=== PATIENT | male | born 1955 | race Caucasian/White ===

== ENCOUNTER → 2017-02-07 | Outpatient (CLI) | payer BC ==
[~2017-02-07] MED LIST: LRT5 PO
[2017-02-07 13:16] LABS: BLOOD UREA NITROGEN 11 mg/dl (7-18); BUN/CREATININE RATIO 9.7 (10-20)
== END | disposition home or self-care (01) ==
LOC: C.LAB1850 10:31
PROVIDERS: ATTEND Urology
DX: Z12.5 Encounter for screening for malignant neoplasm of prostate (principal)

== ENCOUNTER → 2017-03-21 | Outpatient (CLI) | payer BC ==
--- NOTE | 2017-03-21 08:19 | DIAGNOSTIC IMAGING REPORT ---
LEFT FOOT MIN 3 VIEWS ROUTINE CLINICAL HISTORY: 61 years-old Male presenting with left foot pain. TECHNIQUE: Frontal, oblique and lateral views of the left foot were obtained. COMPARISON: None. FINDINGS: No acute fracture or malalignment. No radiopaque foreign body. No significant degenerative change. Soft tissues are grossly normal. IMPRESSION: 1. No acute osseous injury of the left foot. Electronically signed by: Danny Patel M.D. 03/21/2017 8:18 AM Dictated Date/Time: 03/21/2017 8:16 AM
[2017-03-21 09:40] LABS: BASO % 0.7 %; BASO ABS # 0.06 K/uL (0-0.2); COMPLETE YES; EOS % 4.7 %; HEMATOCRIT 52.6 % (42-52); IG% 1.2 %; LYMPH % 19.7 %; LYMPH ABS # 1.69 K/uL (1.2-3.4); MEAN CELL VOLUME 91.5 fL (80-100); MEAN CORPUSCULAR HEMOGLOBIN 32.5 pg (25-34); MEAN CORPUSCULAR HGB CONC 35.6 g/dl (32-36); MEAN PLATELET VOLUME 11.6 fL (7.4-10.4); MONO % 11.8 %; NEUT % 61.9 %; PLATELET COUNT 153 K/uL (130-400); RED BLOOD COUNT 5.75 M/uL (4.7-6.1); WHITE BLOOD COUNT 8.56 K/uL (4.8-10.8)
[2017-03-21 09:59] LABS: ALT/SGPT 41 U/L (12-78); BLOOD UREA NITROGEN 17 mg/dl (7-18); BUN/CREATININE RATIO 15.2 (10-20); CARBON DIOXIDE 25 mmol/L (21-32); CHLORIDE 110 mmol/L (98-107); CHOLESTEROL 161 mg/dl (0-200); GLUCOSE 88 mg/dl (70-99); POTASSIUM 4.3 mmol/L (3.5-5.1); SODIUM 140 mmol/L (136-145); TRIGLYCERIDES 114 mg/dl (0-150); VERY LOW DENSITY LIPOPROT CALC 23 mg/dl
[2017-03-21 10:04] LABS: ALB/GLOB RATIO 1.2 (0.9-2); ALKALINE PHOSPHATASE 64 U/L (45-117); AST/SGOT 19 U/L (15-37); CHOLESTEROL/HDL RATIO 4.1; HDL CHOLESTEROL 39 mg/dl; LDL CHOLESTEROL CALCULATED 99 mg/dl
== END | disposition home or self-care (01) ==
LOC: C.RAD 07:35
PROVIDERS: ATTEND Urology
DX: Z00.00 Encounter for general adult medical examination without abnormal findings (principal); M79.672 Pain in left foot; N52.9 Male erectile dysfunction, unspecified; Z12.5 Encounter for screening for malignant neoplasm of prostate; R97.20 Elevated prostate specific antigen [PSA]

== ENCOUNTER → 2017-04-25 | Outpatient (CLI) | payer BC ==
[2017-04-25 12:55] LABS: BLOOD UREA NITROGEN 19 mg/dl (7-18); BUN/CREATININE RATIO 18.7 (10-20)
== END | disposition home or self-care (01) ==
LOC: C.LABBFT 10:27
PROVIDERS: ATTEND Urology
DX: Z12.5 Encounter for screening for malignant neoplasm of prostate (principal)

== ENCOUNTER → 2017-05-19 | Outpatient (CLI) | payer BC ==
--- NOTE | 2017-05-19 08:09 | DIAGNOSTIC IMAGING REPORT ---
LEFT KNEE RADIOGRAPH WITH COMPARISON STANDING AP RADIOGRAPH OF THE RIGHT KNEE CLINICAL HISTORY: Left knee pain. COMPARISON: Knee radiographs May 17, 2010. FINDINGS: Comparison standing AP radiograph of the right knee demonstrates stable postoperative findings within the proximal right tibia with cannulated screws consistent with internal fixation. The hardware is intact. Joint spaces are preserved. Subtle irregularity of the lateral tibial plateau and lateral femoral condyle is similar to prior study. Alignment of the left knee is anatomic. There is no fracture or suspicious lesion. Joint spaces are preserved. There is a possible trace left knee joint effusion. IMPRESSION: 1. No osseous abnormality of the left knee identified. 2. Possible trace left knee joint effusion. 3. Stable postoperative findings consistent with right tibial internal fixation. Electronically signed by: Clinton Corona M.D. 05/19/2017 8:08 AM Dictated Date/Time: 05/19/2017 8:04 AM
== END | disposition home or self-care (01) ==
LOC: C.RDSM 14:53
PROVIDERS: ATTEND Physician Assistant
DX: R52 Pain, unspecified (principal)

== ENCOUNTER → 2017-05-26 | Outpatient (CLI) | payer BC ==
[2017-05-26 19:16] LABS: LYME DISEASE AB IGG NEG (NEG); LYME DISEASE AB IGM NEG (NEG)
== END | disposition home or self-care (01) ==
LOC: C.LABPBG 11:18
PROVIDERS: ATTEND Internal Medicine
DX: M25.50 Pain in unspecified joint (principal); W57.XXXA Bitten or stung by nonvenomous insect and other nonvenomous arthropods, initial encounter

== ENCOUNTER → 2017-08-17 | Outpatient (CLI) | payer BC ==
--- NOTE | 2017-08-17 09:56 | DIAGNOSTIC IMAGING REPORT ---
L LOWER EXT JOINT WITHOUT CLINICAL HISTORY: LT KNEE PAIN,SWELLING pain. Edema. TECHNIQUE: MRI multi axial acquisition COMPARISON STUDY: None FINDINGS: Compromised exam due to patient motion. Signal characteristics of the osseous structures indicate a slight degree of edema deep to the medial tibial plateau. No well-defined fracture is appreciated. Anterior and posterior cruciate ligaments are intact. Mild edema medial collateral ligament. Lateral collateral ligament is unremarkable. Evaluation of menisci shows the lateral meniscus to be unremarkable in configuration and appearance. The medial meniscus shows complex internal matrix with hairline linear extensions to the superior and inferior margins primarily of the mid medial meniscus. The patellofemoral joint is unremarkable. There is no evidence for chondromalacia. Medial and lateral patellar retinaculum are intact. IMPRESSION: 1. Complex tear medial meniscus with intrameniscal tears as well as small linear hairline extension to the superior and inferior margins of the mid and to lesser extent posterior horn medial meniscus. 2. All major ligamentous and tendinous structures are intact. 3. Sprain medial collateral ligament. 4. No additional significant acute abnormalities appreciated. The above report was generated using voice recognition software. It may contain grammatical, syntax or spelling errors. Electronically signed by: Tristan Pollock M.D. 08/17/2017 9:54 AM Dictated Date/Time: 08/17/2017 9:48 AM
== END | disposition home or self-care (01) ==
LOC: C.MRI 08:27
PROVIDERS: ATTEND Physician Assistant
DX: S83.242A Other tear of medial meniscus, current injury, left knee, initial encounter (principal); X58.XXXA Exposure to other specified factors, initial encounter

== ENCOUNTER → 2017-10-12 | Day surgery (SDC) | payer BC ==
[2017-09-12 10:26] VITALS: Ht 165.1 cm; Wt 81.8 kg
[~2017-10-12] VITALS: Ht 165.1 cm; Wt 81.8 kg
[~2017-10-12] MED LIST changes: +ATROPINE SULFATE 0.1 MG/ML 5ML SYR IV PRN; +CEFAZOLIN 2000MG IV PUSH 15 ML IV SCH; +DEXAMETHASONE SOD INJ 4 MG/ML VIAL ONE; +EpHEDrine SULFATE INJ 50 MG/ML AMP IV PRN; +FENTANYL CITRATE INJ 50 MCG/1 ML 2 ML VIAL ONE; +HYDROCODONE/ACETAMIN 5/325MG TAB PO PRN; +HYDROmorphone INJ 1 MG/ML SYR IV PRN; +LACTATED RINGER'S 1000ML 1,000 ML IV SCH; +LIDOCAINE HCL 2% 2 ML VIAL (20MG/ML) ONE; +LIDOCAINE/EPINEPHRINE 1% INJ 50 ML VIAL ONE; +LISI10TA PO; -LRT5 PO; +MIDAZOLAM HCL 1 MG/ML 2ML VIAL ONE; +ONDANSETRON INJ 2 MG/ML 2 ML VIAL IV PRN; +ONDANSETRON INJ 2 MG/ML 2 ML VIAL ONE; +PROMETHAZINE HCL INJ 12.5 MG in SODIUM CHLORIDE 0.9% 50ML 50 ML IV PRN; +PROPOFOL IV EMULSION 10 MG/ML 20 ML VIAL IV ONE; +SILD100T PO
--- NOTE | 2017-10-12 06:48 | History & Physical Bridge Note ---
H&P Re-Evaluation Bridge Note: I have examined the patient, reviewed the History & Physical and in the interval since the performance of the History & Physical I have noted the following changes of clinical significance: No changes noted
--- NOTE | 2017-10-12 08:08 | [facility] Post Operative Brief Note ---
Immediate Operative Summary Operative Date Oct 12, 2017. Pre-Operative Diagnosis Left knee medial meniscus tear Post-Operative Diagnosis Same as preop Procedure(s) Performed Left Knee Arthroscopy, Partial Medial Meniscectomy Surgeon Dr. Funes Repair Table Operator Surgeon(s) Higinio Treadwell PA-C, tcio ser ms3 Estimated Blood Loss 0 mL Findings Consistent with Post-Op Diagnosis Specimens None Drains None Anesthesia Type General Complication(s) none Disposition Accompanied Pt To Recovery: no Disposition: Recovery Room / PACU
--- NOTE | 2017-10-12 08:26 | [facility] Operative Report ---
Operative Report Operative Date Oct 12, 2017. Pre-Operative Diagnosis Left knee medial meniscus tear Post-Operative Diagnosis Same as preop Procedure(s) Performed Left Knee Arthroscopy, Partial Medial Meniscectomy Surgeon Dr. Funes Yard General Car Supervisor Surgeon(s) Higinio Treadwell PA-C, tico joshi ms3 Estimated Blood Loss 0 mL Findings Complex tear medial meniscus Specimens None Anesthesia laryngeal mask Complication(s) None Disposition Recovery Room / PACU Indications The patient is a 61-year-old male with signs and symptoms of a left knee medial meniscus tear confirmed by MRI and consistent with physical examination. Description of Procedure Patient was identified as dar kent. Informed consent was obtained. A preoperative surgical timeout was performed. A preoperative dose of IV antibiotics was given. He was taken to the operating room positioned supine on the OR table. No tourniquet was utilized. A lateral post was used for stressing the knee. The limb was examined and found to have full range of motion with normal stability no effusion. The leg was prepped and draped in usual sterile fashion. DVT prophylaxis intraoperatively with foot pumps and postoperatively with aspirin and early mobility. The patient identified the operative site as the left knee which I marked with my initials. 1% lidocaine with epinephrine was injected in the knee joint fat pad and portal sites preoperatively. Inferolateral viewing portal superior lateral outflow portal and inferomedial working portals were established. Diagnostic arthroscopy was performed. There was a septated suprapatellar pouch. There was a benign-appearing noninflamed medial plica. No loose bodies. The suprapatellar pouch medial and lateral gutters were normal. The articular surfaces of the patella and trochlea were normal. The retropatellar fat pad was resected. The ligamentum mucosum was absent. The lateral compartment showed some grade 1 changes diffusely over the lateral tibial plateau. There was a small 1-2 mm fissure in the inner rim of the lateral meniscus which was debrided. Otherwise lateral meniscus was stable. The posterior lateral compartment normal. Anterior cruciate ligament and PCL normal. Lateral femoral condyle normal. In the medial compartment there was a complex tear the medial meniscus. MCL perforated to improve visualization with 18-gauge spinal needle. The meniscus was debrided back to a stable balanced and well comport rim using basket forceps and shaver. There was a flipped fragment anteriorly and posteriorly. The posterior medial compartment was otherwise normal. Tibial plateau normal. Medial femoral condyle demonstrated grade 2 chondrosis 12 cm towards the lateral aspect. Aly on through need a pickup debris. Portals were closed with 4-0 nylon. A soft sterile dressing was applied. The patient was awakened from anesthesia without difficulty and taken to the recovery room stable condition. There were no specimens or complications. Blood loss was minimal. At the conclusion operation I spoke the patient's family informed of my findings gave detailed postoperative instructions. He'll begin aspirin the evening of surgery for DVT prophylaxis. He will be rehabilitated according to the arthroscopic partial meniscectomy protocol. He may weight-bear as tolerated with crutches. I attest to the content of the Intraoperative Record and any orders documented therein. Any exceptions are noted below.
--- NOTE | 2017-10-12 08:28 | Discharge Instructions-SurgCtr ---
Discharge Instructions Date of Service Oct 12, 2017. Visit Reason for Visit: Left Knee Medial Meniscus Tear Discharge Discharge Diagnosis / Problem: Left knee s/p arthroscopy partial medial meniscectomy Discharge Goals Goal(s): Decrease discomfort, Improve function, Increase independence Activity Recommendations Activity Limitations: as noted below Lifting Limitations: gradually increase as tolerated Exercise/Sports Limitations: until after follow-up appointment Shower/Bathe: may shower/bathe in 3 days Driving or Machine Use: resume 3 days after discharge Weightbearing Status: Left weightbearing (as tolerated) Anesthesia . Post Anesthesia Instructions: If you have had General Anesthesia or IV Sedation: * Do not drive today. * Resume driving when surgeon permits. * Do not make important decisions or sign legal documents today. * Call surgeon for: 1. Temperature elevations greater than 101 degrees F. 2. Uncontrollable pain. 3. Excessive bleeding. 4. Persistent nausea and vomiting. 5. Medication intolerance (nausea, vomiting or rash). * For nausea and vomiting use only clear liquids such as: tea, soda, bouillon until nausea subsides, then gradually increase diet as tolerated. * If you have any concerns or questions, call your surgeon's office. If physician is unavailable and it is an emergency, call 911 or go to the nearest emergency room. . Instructions / Follow-Up Instructions / Follow-Up The following are instructions to follow after your Arthroscopic Knee Surgery. ACTIVITY RECOMMENDATIONS: * Minimize activity until your first visit after surgery. * No excessive walking, jogging, sports or laboring. * Return to activity is individualized. Most patients are able to return to every day activities within one month. * Return to sports or intensive labor usually occurs at 2-3 months. * Driving is not permitted until at least your first postoperative visit at a minimum. Please ask your doctor when it is safe to resume driving. If you have an automatic vehicle and your left leg has been operated on, then you may begin driving as soon as you are comfortable and can drive safely. SCHOOL/WORK RECOMMENDATIONS: * You may return to sedentary work when you are feeling more comfortable. This is usually 3-7 days after surgery. * Expect increased discomfort with increased activity. Continue to elevate and ice the leg as much as possible. MEDICATIONS: * You will have a prescription for pain medication and an anti-inflammatory medication after surgery. * Use the pain medication for severe pain and the anti-inflammatory for less severe pain. Once the pain medication has run out, try to use the anti-inflammatory medication. If this is not effective, contact the office for assistance. * The pain medication may cause nausea, constipation and drowsiness. You should see how they affect you before driving or similar activity. * The anti-inflammatory medication may cause stomach upset and bleeding. If this occurs let your doctor know immediately . * Take a stool softener like Colace or a laxative like Senokot to prevent constipation. DIET: * Resume previous diet. SPECIAL CARE: ICE: You have the option of a gel packs or ice bags. * If you do not have an ice cooler, you will need to use ice bags or gel packs. Do not apply ice directly to the skin. Use a thin dressing or lobo shirt between the skin and ice bag. Apply ice for 20-30 minutes and repeat every 2-4 hours. This is especially important for the first 7-10 days after surgery. Once the pain improves, use ice as needed. ELEVATION: * Keep your leg elevated at or above the level of your heart as much as possible. * Expect some increased discomfort and swelling if you are standing for any length of time. * When lying down, avoid placing anything under your knee. Rather, prop your leg up by placing several pillows under your heel or calf. DRESSING: * Your dressing will be changed at your first therapy appointment approximately 4-5 days after surgery. Band-aids, tape strips or gauze may be applied. You may then change your dressing daily. * Reapply dressing followed by the Jesus wrap. * Always wash your hands prior to touching the incision area. * Once the stitches are removed, you may leave the wound open to air or cover with an Jesus wrap or Tubi-tongue lining stitcher stockinet. * If you have been given a white elastic stocking (JACKY hose), wear as much as possible for the first 1-3 weeks depending on swelling. * Expect some bloody drainage for the first few days after surgery. * Leave the tape strips, if present, in place for 5-7 days. * Band-aids and gauze may be changed daily. CRUTCHES: * You will need to use crutches after surgery. * You may gradually progress to full weight bearing as tolerated and wean off the crutches unless otherwise advised. * Your therapist can provide assistance weaning off crutches. * Patients who have a microfracture done may need to be toe-touch weight- bearing for 4-6 weeks. BATHING: * You may shower or sponge-bathe immediately after surgery. * The dressing will need to be covered with a plastic bag or plastic wrap until the dressing is changed on the fourth or fifth day after surgery. * Once the dressing has been changed on the fourth or fifth day after surgery, you may shower and get the incision wet. * Wash with regular soap and water. * Do not bathe (submerge the incision), soak, swim or use a hot tub until the incision is completely healed over with normal skin and the doctor has given the OK to proceed. * There is no need to apply any ointments, powders or salves to your incision. * Do not apply alcohol or hydrogen peroxide directly to the incision. * Diluted peroxide (50:50 mixture with sterile saline) may be used to clean dried blood from around the incision area. BRACE: * Bracing is generally not needed after routine Arthroscopic Knee surgery. THERAPY: * You will begin therapy four or five days after surgery. * Organized therapy with the therapist is important for the first 4-6 weeks after surgery. During that time you will attend therapy 1-3 times per week. * You will also need to do daily exercises for range of motion and strength as instructed. PROBLEMS/QUESTIONS: * If you have any problems such as severe pain, numbness, tingling or high fevers or if you have any questions, please contact the office at [phone]. * It is not uncommon to have some numbness and tingling after the surgery especially if you have had a nerve block done. This should gradually improve over the first 1- 2 days. If this persists longer or worsens please contact the office. FOLLOW UP VISIT: * If not already scheduled, please call the office at to schedule a follow-up appointment for 10 days, 6 weeks and 3 months after surgery. Diet Recommendations Home Diet: resume previous diet Procedures Procedures Performed: Left Knee Arthroscopy, Partial Medial Meniscectomy Pending Studies Studies pending at discharge: no Medical Emergencies . Who to Call and When: Medical Emergencies: If at any time you feel your situation is an emergency, please call 911 immediately. . Non-Emergent Contact Non-Emergency issues call your: Primary Care Provider, Surgeon Call Non-Emergent contact if: temperature is above 101, wound has increased drainage, wound has increased redness, wound has increased pain, you have any medication questions . . "Provider Documentation" section prepared by Higinio Treadwell PA-C. . [place] Drug Monitoring Program Search Results: no issues identified
[2017-10-12] MEDS: FENTANYL CITRATE INJ 50 MCG/1 ML 2 ML VIAL IV PRN ×2 (08:37→08:42)
[2017-10-12 09:00] VITALS: TEMP 36.2
[2017-10-12 09:38] VITALS: BP 146/75; PULSE 60; O2SAT 95
--- NOTE | 2017-10-12 10:00 | Anesthesia Progress Nt - [facility] ---
Anesthesia Post Op Note Date & Time Oct 12, 2017 at 10:00 Vital Signs Pain Intensity: 3 Vital Signs Past 12 Hours Date Time Temp Pulse Resp B/P (MAP) Pulse Ox O2 Delivery O2 Flow Rate FiO2 10/12/17 09:38 60 20 146/75 (98) 95 Room Air 10/12/17 09:00 36.2 60 20 131/81 (98) 97 Room Air 10/12/17 08:51 55 15 92 10/12/17 08:51 55 15 10/12/17 08:50 55 16 10/12/17 08:50 55 16 124/82 94 10/12/17 08:46 36.4 96 Room Air 10/12/17 08:46 128/77 10/12/17 08:45 56 16 10/12/17 08:45 63 16 99 10/12/17 08:42 113/76 10/12/17 08:40 50 17 98 10/12/17 08:40 51 17 10/12/17 08:39 52 16 10/12/17 08:39 53 16 98 10/12/17 08:36 120/74 10/12/17 08:34 56 18 98 10/12/17 08:34 55 18 10/12/17 08:32 119/80 10/12/17 08:29 58 12 10/12/17 08:29 60 12 100 10/12/17 08:28 59 14 10/12/17 08:28 60 14 100 10/12/17 08:27 121/72 10/12/17 08:23 68 16 99 10/12/17 08:23 68 16 10/12/17 08:20 136/87 10/12/17 08:18 140/82 10/12/17 08:18 36.6 73 16 140/82 96 Mask 10 10/12/17 06:35 36.8 56 16 143/86 (105) 97 Room Air Notes Mental Status: alert / awake / arousable, participated in evaluation Pt Amnestic to Procedure: Yes Nausea / Vomiting: adequately controlled Pain: adequately controlled Airway Patency, RR, SpO2: stable & adequate BP & HR: stable & adequate Hydration State: stable & adequate Anesthetic Complications: no major complications apparent
--- NOTE | 2017-10-12 12:26 | [facility] Operative Report ---
Operative Report Operative Date Oct 12, 2017. Pre-Operative Diagnosis Left knee medial meniscus tear Post-Operative Diagnosis left knee same as preop Procedure(s) Performed Left Knee Arthroscopy, Partial Medial Meniscectomy Surgeon Dr. Funes Group Leader Semiconductor Processing Surgeon(s) Higinio Treadwell PA-C, tico joshi ms3 Estimated Blood Loss 0 mL Findings medial meniscal tear Specimens None Drains None Anesthesia Type General Complication(s) none Disposition no Recovery Room / PACU Indications This 61-year-old white male presented the office with complaints of intractable left knee pain. Preoperative imaging was obtained. He elected to proceed with surgical intervention after being educated about potential risks and outcomes. Description of Procedure Patient was taken to the operating room where he was given local anesthesia and general anesthesia. He was prepped and draped in usual sterile fashion. Please see Dr. Funes's operative report for specifics of the procedure. I was present for the entire case from initial patient positioning through final wound closure. Assistance was provided in patient positioning, arthroscopy, and final wound closure. Patient was taken to the recovery room in satisfactory condition. I attest to the content of the Intraoperative Record and any orders documented therein. Any exceptions are noted below.
--- NOTE | 2017-10-12 13:51 | Medical Student: [facility] ---
Immediate Operative Summary Operative Date Oct 12, 2017. Pre-Operative Diagnosis Left knee medial meniscal tear Post-Operative Diagnosis Same as above Procedure(s) Performed Arthroscopy of the left knee, partial medial meniscectomy Surgeon Dr. Funes Ceramic Engineer Surgeon(s) Higinio Treadwell PA-C and Abigail Mtz, MS3 Estimated Blood Loss 0cc Findings Findings were consistent with post-operative diagnosis Specimens No specimens were collected Drains None Anesthesia General Complication(s) None Disposition Recovery Room / PACU
== END | disposition home or self-care (01) ==
LOC: X.SURG 06:13
PROVIDERS: ATTEND Physical Medicine & Rehabilitation Sports Medicine
DX: S83.242A Other tear of medial meniscus, current injury, left knee, initial encounter (principal); I10 Essential (primary) hypertension; F17.200 Nicotine dependence, unspecified, uncomplicated; X58.XXXA Exposure to other specified factors, initial encounter; E66.9 Obesity, unspecified